=== PATIENT | male | born 1995 | race African-American/Black ===

== ENCOUNTER 2018-01-03 03:02 | Inpatient (IN) | payer MEDICAID ==
[~2018-01-03] VITALS: Ht 175.3 cm; Wt 63.4 kg
[2018-01-03 04:06] LABS: Basophils # (auto) 0 uL; Basophils % (auto) 0.1 % (0.0-2.0); Eosinophils # (auto) 0 uL; Hematocrit 48.2 % (41.0-53.0); Hemoglobin 15.9 g/dL (13.5-17.5); Lymphocytes # (auto) 0.5 uL; Lymphocytes % (auto) 8.8 % (10.0-50.0); Mean Corpuscular Hemoglobin 29.3 pg (28.0-32.0); Mean Corpuscular Hgb Conc. 33.1 g/dL (32.0-36.0); Mean Corpuscular Volume 88.7 fL (80.0-100.0); Monocytes # (auto) 0.7 uL; Monocytes % (auto) 11.6 % (0.0-12.0); Neutrophils # (auto) 4.4 uL; Neutrophils % (auto) 79.5 % (37.0-80.0); Platelet Count (auto) 138 10^3/uL (140-450); Red Blood Cells 5.43 10^6/uL (4.5-5.90); Red Cell Distribution Width 13.6 % (11.8-14.3); White Blood Cell 5.6 10^3/uL (4.4-10.8)
[2018-01-03 04:21] LABS: Albumin 4.3 g/dL (3.4-5.0); BUN/Creatinine Ratio 6.2; Calcium 8.7 mg/dL (8.5-10.1); Potassium 3.8 mmol/L (3.5-5.1); Salicylate < 1.7 mg/dL (2.8-20.0)
[2018-01-03 04:29] LABS: Bilirubin, Total 1.6 mg/dL (0.2-1.0); Total Protein 6.7 g/dL (6.4-8.2)
[2018-01-03 04:33] LABS: Acetaminophen 294.8 ug/mL (10-30)
[2018-01-03] MEDS ORDERED: ACETYLCYSTEINE 200MG/ML IV SOL 150 MG in D5W 5% 250 ML IV ONE (04:45)
[2018-01-03] MEDS ORDERED: ACETYLCYSTEINE 200MG/ML IV SOLN 30ML IV ONE ×2 (04:54→05:05)
[2018-01-03] MEDS ORDERED: ACETYLCYSTEINE IV ONE ×3 (05:00→06:00)
[2018-01-03] MEDS ORDERED: D5W 5% IV ONE ×3 (05:00→06:00)
[2018-01-03 08:02] LABS: Urine Bacteria FEW /hpf (None Seen); Urine Blood Negative /uL (Negative); Urine Specific Gravity 1.025 (1.001-1.035); Urine WBC 6 /hpf (0 - 3)
[2018-01-03 08:22] LABS: Alcohol, Urine < 3.0 mg/dL (0-5); Amphetamine Screen, Urine NEGATIVE (NEGATIVE); Barbiturate Scree,Urine NEGATIVE (NEGATIVE); Benzodiazephine Screen, Urine NEGATIVE (NEGATIVE); Cannabinoid Screen, Urine NEGATIVE (NEGATIVE); Cocaine Screen, Urine NEGATIVE (NEGATIVE); Opiate Scree,Urine NEGATIVE (NEGATIVE); Phencyclidine Screen, Urine NEGATIVE (NEGATIVE)
[2018-01-03] MEDS ORDERED: MORPHINE SULF INJ 2 MG/ML SYRINGE 1ML IV PRN ×3 (08:30)
[2018-01-03] MEDS ORDERED: DEXTROSE (50%) 50ML SYRG IV PRN (08:30)
[2018-01-03] MEDS ORDERED: NITROGLYCERIN 0.4 MG SL TAB SL PRN (08:30)
[2018-01-03] MEDS ORDERED: LACTULOSE 20Gm/30ML SOLN PO PRN (08:30)
[2018-01-03 08:48] LABS: Amylase 86 U/L (25-115); Lipase 97 U/L (73-393)
[2018-01-03 08:56] LABS: INR 1.45 (0.9-1.15); Partial Thromboplastin Time 25.6 sec (23.78-33.04); Prothrombin Time 15.2 sec (9.27-12.13)
[2018-01-03] MEDS: cefTRIAXone 1GM/10ml IVPUSH 10 ML IV SCH (09:30)
[2018-01-03] MEDS ORDERED: D5W 5% IV SCH (09:45)
[2018-01-03] MEDS ORDERED: ACETYLCYSTEINE IV SCH (09:45)
[2018-01-03] MEDS: PANTOPRAZOLE 40 MG TAB PO SCH (10:18)
[2018-01-03] MEDS: ACETYLCYSTEINE IV SCH (10:31)
[2018-01-03] MEDS: D5W 5% IV SCH (10:31)
[2018-01-03 11:23] LABS: Albumin 4.1 g/dL (3.4-5.0); Bilirubin, Direct 0.5 mg/dL (0-0.2); Bilirubin, Total 2.7 mg/dL (0.2-1.0); Total Protein 6.8 g/dL (6.4-8.2)
[2018-01-03] MEDS: ACCU-CHEK COMFORT CURVE STRIP VI SCH ×3 (11:51→22:00)
[2018-01-03] MEDS: InsuLIN REG 1unit/0.01ml Soln (100units/ml) SC SCH ×3 (11:55→22:00)
[2018-01-03 16:04] LABS: Potassium 3.2 mmol/L (3.5-5.1); Sodium 139 mmol/L (136-145)
[2018-01-03 16:05] LABS: Anion Gap 14 (5-15); BUN/Creatinine Ratio 5.1; Blood Urea Nitrogen 7 mg/dL (7-18); Carbon Dioxide 22 mmol/L (21-32); Chloride 103 mmol/L (98-107); GFR African American 84 mL/min; GFR Non-African American 70 mL/min; Glucose 118 mg/dL (74-106)
[2018-01-03] MEDS ORDERED: SODIUM CHLORIDE 0.9% 2,000 ML IV ONE (16:15)
[2018-01-03] MEDS: SODIUM BICARBONATE 50ML VIAL 50 ML in D5W/SOD CHL 0.45% 1,000 ML IV SCH (17:05)
[2018-01-03 17:43] LABS: Albumin 4.5 g/dL (3.4-5.0); Bilirubin, Direct 0.5 mg/dL (0-0.2); Bilirubin, Total 1.5 mg/dL (0.2-1.0); Total Protein 6.6 g/dL (6.4-8.2)
[2018-01-04 02:30] LABS: Salicylate < 1.7 mg/dL (2.8-20.0)
[2018-01-04 02:33] LABS: Albumin 3.4 g/dL (3.4-5.0); Bilirubin, Direct 0.7 mg/dL (0-0.2); Bilirubin, Total 2.4 mg/dL (0.2-1.0); Total Protein 5.5 g/dL (6.4-8.2)
[2018-01-04 02:43] LABS: Acetaminophen 107.7 ug/mL (10-30)
[2018-01-04] MEDS: D5W 5% IV SCH ×2 (03:00→18:18)
[2018-01-04] MEDS: ACETYLCYSTEINE IV SCH ×2 (03:00→18:18)
[2018-01-04] MEDS: SODIUM BICARBONATE 50ML VIAL 50 ML in D5W/SOD CHL 0.45% 1,000 ML IV SCH ×3 (03:00→23:45)
[2018-01-04] MEDS ORDERED: SODIUM BICARBONATE 8.4% INJ 50ML SYRINGE ONE (03:52)
[2018-01-04 07:00] LABS: Basophils # (auto) 0 uL; Basophils % (auto) 0.3 % (0.0-2.0); Eosinophils # (auto) 0 uL; Hematocrit 45.9 % (41.0-53.0); Hemoglobin 15.4 g/dL (13.5-17.5); Lymphocytes # (auto) 0.8 uL; Lymphocytes % (auto) 16.3 % (10.0-50.0); Mean Corpuscular Hgb Conc. 33.5 g/dL (32.0-36.0); Mean Corpuscular Volume 86.6 fL (80.0-100.0); Monocytes # (auto) 0.1 uL; Monocytes % (auto) 2.1 % (0.0-12.0); Neutrophils # (auto) 3.9 uL; Neutrophils % (auto) 81.3 % (37.0-80.0); Platelet Count (auto) 151 10^3/uL (140-450); Red Cell Distribution Width 13.4 % (11.8-14.3); White Blood Cell 4.7 10^3/uL (4.4-10.8)
[2018-01-04 07:11] LABS: INR 2.59 (0.9-1.15); Prothrombin Time 26.3 sec (9.27-12.13)
[2018-01-04 07:38] LABS: Albumin 3.7 g/dL (3.4-5.0); BUN/Creatinine Ratio 6.8; Calcium 8.5 mg/dL (8.5-10.1); Potassium 3.4 mmol/L (3.5-5.1); Total Protein 6.2 g/dL (6.4-8.2)
[2018-01-04] MEDS: ACCU-CHEK COMFORT CURVE STRIP VI SCH ×4 (07:57→22:09)
[2018-01-04] MEDS: InsuLIN REG 1unit/0.01ml Soln (100units/ml) SC SCH ×3 (08:28→17:00)
[2018-01-04] MEDS: PANTOPRAZOLE 40 MG TAB PO SCH (09:59)
[2018-01-04] MEDS: cefTRIAXone 1GM/10ml IVPUSH 10 ML IV SCH (09:59)
[2018-01-04 13:58] LABS: Albumin 3.4 g/dL (3.4-5.0); BUN/Creatinine Ratio 6.4; Bilirubin, Total 2.6 mg/dL (0.2-1.0); Calcium 8.1 mg/dL (8.5-10.1); Potassium 3.5 mmol/L (3.5-5.1); Total Protein 5.8 g/dL (6.4-8.2)
[2018-01-04 20:12] LABS: Basophils # (auto) 0 uL; Basophils % (auto) 0.3 % (0.0-2.0); Eosinophils # (auto) 0 uL; Eosinophils % (auto) 0.1 % (0.0-7.0); Hematocrit 44.3 % (41.0-53.0); Lymphocytes # (auto) 0.3 uL; Lymphocytes % (auto) 6.2 % (10.0-50.0); Mean Corpuscular Hemoglobin 29.2 pg (28.0-32.0); Mean Corpuscular Hgb Conc. 33.8 g/dL (32.0-36.0); Mean Corpuscular Volume 86.4 fL (80.0-100.0); Monocytes # (auto) 0.1 uL; Monocytes % (auto) 1.9 % (0.0-12.0); Neutrophils # (auto) 4.1 uL; Neutrophils % (auto) 91.5 % (37.0-80.0); Nucleated Red Blood Cells % 0.1 %; Platelet Count (auto) 100 10^3/uL (140-450); Red Blood Cells 5.14 10^6/uL (4.5-5.90); Red Cell Distribution Width 13.4 % (11.8-14.3); White Blood Cell 4.4 10^3/uL (4.4-10.8)
[2018-01-04 20:19] LABS: Acetaminophen 39.4 ug/mL (10-30); Salicylate < 1.7 mg/dL (2.8-20.0)
[2018-01-04 20:36] LABS: Albumin 3.3 g/dL (3.4-5.0); BUN/Creatinine Ratio 7.7; Bilirubin, Total 2.4 mg/dL (0.2-1.0); Calcium 8.3 mg/dL (8.5-10.1); Potassium 3.6 mmol/L (3.5-5.1); Total Protein 5.5 g/dL (6.4-8.2)
[2018-01-05] MEDS ORDERED: SODIUM BICARBONATE 8.4 % INJ 50ML VIAL IV ONE (02:00)
[2018-01-05] MEDS: ACCU-CHEK COMFORT CURVE STRIP VI SCH ×4 (07:06→22:06)
[2018-01-05 07:19] LABS: Basophils # (auto) 0 uL; Basophils % (auto) 0.1 % (0.0-2.0); Eosinophils # (auto) 0 uL; Eosinophils % (auto) 0.3 % (0.0-7.0); Hematocrit 49.5 % (41.0-53.0); Hemoglobin 16.7 g/dL (13.5-17.5); Lymphocytes # (auto) 0.4 uL; Lymphocytes % (auto) 7.6 % (10.0-50.0); Mean Corpuscular Hemoglobin 29.2 pg (28.0-32.0); Mean Corpuscular Hgb Conc. 33.8 g/dL (32.0-36.0); Mean Corpuscular Volume 86.6 fL (80.0-100.0); Monocytes # (auto) 0.2 uL; Monocytes % (auto) 2.7 % (0.0-12.0); Neutrophils # (auto) 5.1 uL; Neutrophils % (auto) 89.3 % (37.0-80.0); Nucleated Red Blood Cells % 0.1 %; Platelet Count (auto) 88 10^3/uL (140-450); Red Blood Cells 5.72 10^6/uL (4.5-5.90); Red Cell Distribution Width 13.5 % (11.8-14.3); White Blood Cell 5.7 10^3/uL (4.4-10.8)
[2018-01-05 07:32] LABS: INR 2.9 (0.9-1.15); Prothrombin Time 29.2 sec (9.27-12.13)
[2018-01-05 08:10] LABS: Albumin 3.3 g/dL (3.4-5.0); BUN/Creatinine Ratio 8.5; Bilirubin, Total 3.7 mg/dL (0.2-1.0); Calcium 8.6 mg/dL (8.5-10.1); Potassium 4.1 mmol/L (3.5-5.1); Total Protein 5.4 g/dL (6.4-8.2)
[2018-01-05] MEDS: ACETYLCYSTEINE IV SCH (10:13)
[2018-01-05] MEDS: D5W 5% IV SCH (10:13)
[2018-01-05] MEDS: PANTOPRAZOLE 40 MG TAB PO SCH (10:14)
[2018-01-05] MEDS: SODIUM BICARBONATE 50ML VIAL 50 ML in D5W/SOD CHL 0.45% 1,000 ML IV SCH ×2 (10:18→20:53)
[2018-01-05] MEDS ORDERED: diphenhdrAMINE HCL 25 MG CAP PO PRN (18:45)
[2018-01-06] MEDS ORDERED: SODIUM BICARBONATE 8.4% INJ 50ML SYRINGE ONE (00:39)
[2018-01-06] MEDS: D5W 5% IV SCH ×2 (02:00→17:45)
[2018-01-06] MEDS: ACETYLCYSTEINE IV SCH ×2 (02:00→17:45)
[2018-01-06 07:09] LABS: Basophils # (auto) 0 uL; Eosinophils # (auto) 0.2 uL; Eosinophils % (auto) 4.2 % (0.0-7.0); Hematocrit 43.2 % (41.0-53.0); Hemoglobin 14.6 g/dL (13.5-17.5); Lymphocytes # (auto) 0.6 uL; Lymphocytes % (auto) 13.1 % (10.0-50.0); Mean Corpuscular Hemoglobin 29.5 pg (28.0-32.0); Mean Corpuscular Hgb Conc. 33.9 g/dL (32.0-36.0); Monocytes # (auto) 0.2 uL; Monocytes % (auto) 3.8 % (0.0-12.0); Neutrophils # (auto) 3.7 uL; Neutrophils % (auto) 77.9 % (37.0-80.0); Nucleated Red Blood Cells % 0.1 %; Platelet Count (auto) 91 10^3/uL (140-450); Red Blood Cells 4.97 10^6/uL (4.5-5.90); Red Cell Distribution Width 13.5 % (11.8-14.3); White Blood Cell 4.7 10^3/uL (4.4-10.8)
[2018-01-06 07:22] LABS: INR 1.6 (0.9-1.15); Prothrombin Time 16.7 sec (9.27-12.13)
[2018-01-06 07:24] LABS: Albumin 2.9 g/dL (3.4-5.0); BUN/Creatinine Ratio 8.5; Calcium 8.1 mg/dL (8.5-10.1); Potassium 3.9 mmol/L (3.5-5.1)
[2018-01-06 07:33] LABS: Bilirubin, Total 2.3 mg/dL (0.2-1.0)
[2018-01-06] MEDS: ACCU-CHEK COMFORT CURVE STRIP VI SCH ×4 (07:41→22:04)
[2018-01-06] MEDS: SODIUM BICARBONATE 50ML VIAL 50 ML in D5W/SOD CHL 0.45% 1,000 ML IV SCH (07:41)
[2018-01-06] MEDS: PANTOPRAZOLE 40 MG TAB PO SCH (09:48)
[2018-01-06] MEDS: D5W/SOD CHL 0.45% 1,000 ML IV SCH (15:55)
[2018-01-06 19:57] LABS: Albumin 2.9 g/dL (3.4-5.0); BUN/Creatinine Ratio 8.8; Bilirubin, Total 1.9 mg/dL (0.2-1.0); Calcium 7.8 mg/dL (8.5-10.1); Potassium 3.8 mmol/L (3.5-5.1)
[2018-01-07] MEDS: D5W/SOD CHL 0.45% 1,000 ML IV SCH ×3 (01:36→20:54)
[2018-01-07] MEDS: ACCU-CHEK COMFORT CURVE STRIP VI SCH ×2 (06:57→11:44)
[2018-01-07 07:57] LABS: Basophils # (auto) 0 uL; Basophils % (auto) 1.4 % (0.0-2.0); Eosinophils # (auto) 0.1 uL; Eosinophils % (auto) 3.4 % (0.0-7.0); Hemoglobin 15.3 g/dL (13.5-17.5); Lymphocytes # (auto) 0.8 uL; Lymphocytes % (auto) 28.7 % (10.0-50.0); Mean Corpuscular Hemoglobin 28.8 pg (28.0-32.0); Mean Corpuscular Hgb Conc. 32.6 g/dL (32.0-36.0); Mean Corpuscular Volume 88.3 fL (80.0-100.0); Monocytes # (auto) 0.2 uL; Monocytes % (auto) 7.4 % (0.0-12.0); Neutrophils # (auto) 1.7 uL; Neutrophils % (auto) 59.1 % (37.0-80.0); Nucleated Red Blood Cells % 0.3 %; Platelet Count (auto) 133 10^3/uL (140-450); Red Blood Cells 5.32 10^6/uL (4.5-5.90); Red Cell Distribution Width 13.7 % (11.8-14.3); White Blood Cell 2.9 10^3/uL (4.4-10.8)
[2018-01-07 08:10] LABS: INR 1.13 (0.9-1.15); Partial Thromboplastin Time 26.7 sec (23.78-33.04)
[2018-01-07 09:11] LABS: Albumin 3.5 g/dL (3.4-5.0); BUN/Creatinine Ratio 6.6; Bilirubin, Total 1.9 mg/dL (0.2-1.0); Calcium 8.5 mg/dL (8.5-10.1); Potassium 3.8 mmol/L (3.5-5.1); Total Protein 6.2 g/dL (6.4-8.2)
[2018-01-07] MEDS: PANTOPRAZOLE 40 MG TAB PO SCH (11:15)
[2018-01-07] MEDS: ACETYLCYSTEINE 20%(200MG/ML) SOLN 30ML PO SCH ×3 (12:38→20:28)
[2018-01-07] MEDS: LACTULOSE 20Gm/30ML SOLN PO SCH ×2 (16:35→22:15)
[2018-01-07 23:00] VITALS: BP 129/85
[2018-01-08] MEDS ORDERED: ACETYLCYSTEINE 20%(200MG/ML) SOLN 30ML ONE (01:25)
[2018-01-08] MEDS: ACETYLCYSTEINE 20%(200MG/ML) SOLN 30ML PO SCH ×6 (01:41→20:20)
[2018-01-08 05:00] VITALS: BP 112/56
[2018-01-08 06:40] LABS: Basophils # (auto) 0 uL; Basophils % (auto) 1.4 % (0.0-2.0); Eosinophils # (auto) 0.2 uL; Eosinophils % (auto) 6.6 % (0.0-7.0); Hematocrit 41.3 % (41.0-53.0); Lymphocytes # (auto) 0.8 uL; Lymphocytes % (auto) 26.6 % (10.0-50.0); Mean Corpuscular Hemoglobin 29.6 pg (28.0-32.0); Monocytes # (auto) 0.5 uL; Monocytes % (auto) 16.6 % (0.0-12.0); Neutrophils # (auto) 1.5 uL; Neutrophils % (auto) 48.8 % (37.0-80.0); Nucleated Red Blood Cells % 0.6 %; Platelet Count (auto) 143 10^3/uL (140-450); Red Blood Cells 4.75 10^6/uL (4.5-5.90)
[2018-01-08] MEDS: D5W/SOD CHL 0.45% 1,000 ML IV SCH (06:44)
[2018-01-08 06:52] LABS: INR 1.12 (0.9-1.15); Partial Thromboplastin Time 27.3 sec (23.78-33.04); Prothrombin Time 11.9 sec (9.27-12.13)
[2018-01-08 07:25] LABS: BUN/Creatinine Ratio 6.4; Bilirubin, Total 1.2 mg/dL (0.2-1.0); Calcium 8.3 mg/dL (8.5-10.1); Potassium 3.8 mmol/L (3.5-5.1); Total Protein 5.5 g/dL (6.4-8.2)
[2018-01-08 09:00] VITALS: BP 125/53
[2018-01-08] MEDS: POTASSIUM CHLORIDE 20 MEQ in D5W 5% 1,000 ML IV SCH ×2 (09:45→19:51)
[2018-01-08] MEDS: PANTOPRAZOLE 40 MG TAB PO SCH (11:48)
[2018-01-08] MEDS: LACTULOSE 20Gm/30ML SOLN PO SCH ×2 (11:48→22:00)
[2018-01-08 17:00] VITALS: BP 133/68
[2018-01-08] MEDS: Ensure Enlive Strawberry 8oz Bottle PO SCH (18:09)
[2018-01-08 20:05] VITALS: BP 128/54
[2018-01-08 22:00] VITALS: BP 128/54
[2018-01-08] MEDS ORDERED: SODIUM CHLORIDE 0.9% 500 ML IV SCH (23:00)
[2018-01-09] MEDS: ACETYLCYSTEINE 20%(200MG/ML) SOLN 30ML PO SCH ×6 (00:22→20:19)
[2018-01-09 05:00] VITALS: BP 102/44
[2018-01-09] MEDS: POTASSIUM CHLORIDE 20 MEQ in D5W 5% 1,000 ML IV SCH (05:07)
[2018-01-09] MEDS: Ensure Enlive Strawberry 8oz Bottle PO SCH ×2 (08:00→18:00)
[2018-01-09 08:18] LABS: Albumin 3.4 g/dL (3.4-5.0); Bilirubin, Direct 0.5 mg/dL (0-0.2); Total Protein 6.3 g/dL (6.4-8.2)
[2018-01-09 09:00] VITALS: BP 113/50
[2018-01-09] MEDS: LACTULOSE 20Gm/30ML SOLN PO SCH ×2 (10:35→22:00)
[2018-01-09] MEDS: PANTOPRAZOLE 40 MG TAB PO SCH (10:35)
[2018-01-09 13:00] VITALS: BP 127/62
[2018-01-09] MEDS: D5W 5% 1,000 ML IV SCH ×2 (13:30→23:30)
[2018-01-09] MEDS: POTASSIUM CHL 20 Meq TABLET PO SCH (14:00)
[2018-01-09 17:00] VITALS: BP 138/74
[2018-01-09 22:00] VITALS: BP 121/67
[2018-01-10] MEDS: ACETYLCYSTEINE 20%(200MG/ML) SOLN 30ML PO SCH ×4 (04:00→12:02)
[2018-01-10 05:00] VITALS: BP 111/72
[2018-01-10 07:10] LABS: Alanine Aminotransferase 2531 U/L (16-61); Aspartate Aminotransferase 113 U/L (15-37)
[2018-01-10 07:45] LABS: Albumin 3.5 g/dL (3.4-5.0); Bilirubin, Direct 0.5 mg/dL (0-0.2); Bilirubin, Total 1.1 mg/dL (0.2-1.0); Total Protein 6.6 g/dL (6.4-8.2)
[2018-01-10] MEDS: Ensure Enlive Strawberry 8oz Bottle PO SCH ×2 (08:34→17:37)
[2018-01-10] MEDS: D5W 5% 1,000 ML IV SCH (08:35)
[2018-01-10] MEDS: LACTULOSE 20Gm/30ML SOLN PO SCH ×2 (08:35→22:08)
[2018-01-10] MEDS: PANTOPRAZOLE 40 MG TAB PO SCH (08:35)
[2018-01-10] MEDS: POTASSIUM CHL 20 Meq TABLET PO SCH (08:35)
[2018-01-10 09:05] VITALS: BP 118/50
[2018-01-10 13:01] VITALS: BP 119/52
[2018-01-10 13:46] LABS: INR 1.03 (0.9-1.15); Partial Thromboplastin Time 27.3 sec (23.78-33.04)
[2018-01-10 13:58] LABS: Alanine Aminotransferase 2169 U/L (16-61); Aspartate Aminotransferase 95 U/L (15-37)
[2018-01-10 16:38] VITALS: BP 116/54
[2018-01-10] MEDS ORDERED: ACETAMINOPHEN 325 MG TAB PO ONE (22:00)
[2018-01-11 05:03] VITALS: BP 113/60
[2018-01-11] MEDS: Ensure Enlive Strawberry 8oz Bottle PO SCH ×2 (08:24→17:29)
[2018-01-11] MEDS: LACTULOSE 20Gm/30ML SOLN PO SCH ×2 (08:59→21:58)
[2018-01-11 09:00] VITALS: BP 121/58
[2018-01-11] MEDS: PANTOPRAZOLE 40 MG TAB PO SCH (09:00)
[2018-01-11 13:00] VITALS: BP 123/62
[2018-01-11 16:52] VITALS: BP 116/57
[2018-01-11] MEDS: CITALOPRAM HYDROBR 20 MG TAB PO SCH (20:00)
[2018-01-11 20:07] VITALS: BP 111/57
[2018-01-11 21:30] VITALS: BP 111/57
[2018-01-12] VITALS (7 sets, daily range): BP systolic 108–137; BP diastolic 49–65
[2018-01-12] MEDS: Ensure Enlive Strawberry 8oz Bottle PO SCH ×2 (07:22→17:02)
[2018-01-12] MEDS: LACTULOSE 20Gm/30ML SOLN PO SCH ×3 (10:00→21:36)
[2018-01-12 10:11] LABS: Albumin 3.9 g/dL (3.4-5.0); Bilirubin, Total 0.9 mg/dL (0.2-1.0); Calcium 8.8 mg/dL (8.5-10.1); Potassium 4.2 mmol/L (3.5-5.1); Total Protein 7.1 g/dL (6.4-8.2)
[2018-01-12] MEDS: PANTOPRAZOLE 40 MG TAB PO SCH (10:13)
[2018-01-12] MEDS: CITALOPRAM HYDROBR 20 MG TAB PO SCH (10:13)
[2018-01-12] MEDS ORDERED: ONDANSETRON ODT 4 MG TAB PO PRN (11:15)
[2018-01-12] MEDS ORDERED: ONDANSETRON HCL 4 MG/2 ML VIAL IV PRN (11:15)
[2018-01-13 05:45] VITALS: BP 107/56
[2018-01-13] MEDS: Ensure Enlive Strawberry 8oz Bottle PO SCH ×2 (07:13→17:31)
[2018-01-13 09:17] VITALS: BP 105/53
[2018-01-13] MEDS: CITALOPRAM HYDROBR 20 MG TAB PO SCH (09:50)
[2018-01-13] MEDS: PANTOPRAZOLE 40 MG TAB PO SCH (09:50)
[2018-01-13] MEDS: LACTULOSE 20Gm/30ML SOLN PO SCH ×2 (09:51→21:57)
[2018-01-13 16:53] VITALS: BP 107/64
[2018-01-13 22:00] VITALS: BP 122/64
[2018-01-14 05:00] VITALS: BP 113/50
[2018-01-14] MEDS: Ensure Enlive Strawberry 8oz Bottle PO SCH ×2 (07:12→17:20)
[2018-01-14 09:00] VITALS: BP 123/71
[2018-01-14] MEDS: PANTOPRAZOLE 40 MG TAB PO SCH (09:42)
[2018-01-14] MEDS: CITALOPRAM HYDROBR 20 MG TAB PO SCH (09:42)
[2018-01-14] MEDS: LACTULOSE 20Gm/30ML SOLN PO SCH ×2 (09:42→22:18)
[2018-01-14 12:53] VITALS: BP 102/58
[2018-01-14 17:00] VITALS: BP 129/72
[2018-01-14 21:44] VITALS: BP 111/54
[2018-01-15 04:40] VITALS: BP 104/58
[2018-01-15 06:36] LABS: Albumin 3.6 g/dL (3.4-5.0); Bilirubin, Direct 0.3 mg/dL (0-0.2); Bilirubin, Total 0.7 mg/dL (0.2-1.0); Total Protein 6.7 g/dL (6.4-8.2)
[2018-01-15] MEDS: Ensure Enlive Strawberry 8oz Bottle PO SCH ×2 (08:00→18:00)
[2018-01-15 09:00] VITALS: BP 117/64
[2018-01-15] MEDS: LACTULOSE 20Gm/30ML SOLN PO SCH ×2 (10:00→21:40)
[2018-01-15] MEDS: PANTOPRAZOLE 40 MG TAB PO SCH (10:22)
[2018-01-15] MEDS: CITALOPRAM HYDROBR 20 MG TAB PO SCH (10:22)
[2018-01-15 13:00] VITALS: BP 132/79
[2018-01-15 16:30] VITALS: BP 120/59
[2018-01-15] MEDS ORDERED: IBUPROFEN 400 MG TAB PO PRN (17:15)
[2018-01-15 22:00] VITALS: BP 119/61
[2018-01-16 05:00] VITALS: BP_SYST 103; BP_SYST 114; BP_DIAS 58; BP_DIAS 61
[2018-01-16] MEDS: Ensure Enlive Strawberry 8oz Bottle PO SCH ×2 (08:04→17:54)
[2018-01-16] MEDS: CITALOPRAM HYDROBR 20 MG TAB PO SCH (10:47)
[2018-01-16] MEDS: LACTULOSE 20Gm/30ML SOLN PO SCH ×2 (10:47→21:43)
[2018-01-16] MEDS: PANTOPRAZOLE 40 MG TAB PO SCH (10:48)
[2018-01-16 22:00] VITALS: BP 118/72
[2018-01-17 05:00] VITALS: BP 108/63
[2018-01-17] MEDS: CITALOPRAM HYDROBR 20 MG TAB PO SCH (06:25)
[2018-01-17] MEDS: Ensure Enlive Strawberry 8oz Bottle PO SCH ×3 (08:00→17:51)
[2018-01-17 08:49] VITALS: BP 110/67
[2018-01-17] MEDS: LACTULOSE 20Gm/30ML SOLN PO SCH ×2 (10:00→21:51)
[2018-01-17] MEDS: PANTOPRAZOLE 40 MG TAB PO SCH (10:34)
[2018-01-17 13:04] VITALS: BP 120/58
[2018-01-17 17:08] VITALS: BP 111/75
[2018-01-17 22:00] VITALS: BP 128/64
[2018-01-18 05:30] VITALS: BP 108/75
[2018-01-18] MEDS: CITALOPRAM HYDROBR 20 MG TAB PO SCH (06:12)
[2018-01-18] MEDS: Ensure Enlive Strawberry 8oz Bottle PO SCH ×2 (08:00→18:42)
[2018-01-18] MEDS: PANTOPRAZOLE 40 MG TAB PO SCH (09:53)
[2018-01-18] MEDS: LACTULOSE 20Gm/30ML SOLN PO SCH ×2 (09:53→21:32)
[2018-01-18 09:54] VITALS: BP 108/57
[2018-01-18 13:00] VITALS: BP 120/66
[2018-01-18 21:17] VITALS: BP 105/57
[2018-01-18] MEDS ORDERED: diphenhdrAMINE HCL 25 MG CAP PO ONE (23:30)
[2018-01-19 05:03] VITALS: BP 110/61
[2018-01-19] MEDS: CITALOPRAM HYDROBR 20 MG TAB PO SCH (06:27)
[2018-01-19 08:00] VITALS: BP 111/70
[2018-01-19] MEDS: Ensure Enlive Strawberry 8oz Bottle PO SCH ×2 (08:00→18:28)
[2018-01-19] MEDS: PANTOPRAZOLE 40 MG TAB PO SCH (10:42)
[2018-01-19] MEDS: LACTULOSE 20Gm/30ML SOLN PO SCH ×2 (10:42→21:31)
[2018-01-19 12:00] VITALS: BP 118/61
[2018-01-19 16:00] VITALS: BP 118/67
[2018-01-19 22:00] VITALS: BP 117/65
[2018-01-20 05:00] VITALS: BP 99/52
[2018-01-20] MEDS: CITALOPRAM HYDROBR 20 MG TAB PO SCH (06:01)
[2018-01-20] MEDS: Ensure Enlive Strawberry 8oz Bottle PO SCH ×2 (08:00→18:41)
[2018-01-20 08:56] VITALS: BP 112/63
[2018-01-20] MEDS: PANTOPRAZOLE 40 MG TAB PO SCH (11:01)
[2018-01-20] MEDS: LACTULOSE 20Gm/30ML SOLN PO SCH (11:01)
[2018-01-20 13:00] VITALS: BP 132/71
[2018-01-20 16:45] VITALS: BP 124/69
[2018-01-20 19:27] VITALS: BP 124/69
== END 2018-01-20 20:40 | disposition home or self-care (01) | DRG 812 ==
LOC: ER 03:02 → TELE 03:03 → TELE-CENTR 01-07 22:50 → CENTRAL 01-08 00:15
PROVIDERS: ADMIT Internal Medicine; ATTEND Internal Medicine
DX: T39.1X2A Poisoning by 4-Aminophenol derivatives, intentional self-harm, initial encounter (principal); N17.0 Acute kidney failure with tubular necrosis; D68.9 Coagulation defect, unspecified; D69.6 Thrombocytopenia, unspecified; N39.0 Urinary tract infection, site not specified; F32.9 Major depressive disorder, single episode, unspecified; F17.210 Nicotine dependence, cigarettes, uncomplicated; F12.90 Cannabis use, unspecified, uncomplicated; R73.9 Hyperglycemia, unspecified; R00.1 Bradycardia, unspecified; R74.8 Abnormal levels of other serum enzymes; Z88.0 Allergy status to penicillin; Y92.89 Other specified places as the place of occurrence of the external cause; Z81.8 Family history of other mental and behavioral disorders
CPT/HCPCS: 36415; 36600; 71045; 80048; 80053; 80076; 80307; 80320; 80329; 81001; 82150; 82805; 82962; 83036; 83690; 84443; 84450; 84460; 85025; 85610; 85730; 86703; 87086; 93005; 94761; 96365; 96375; J0696; J1815; J7060; Q0162